=== PATIENT | male | born 1965 | race African-American/Black ===

== ENCOUNTER 2017-12-11 04:37 | Emergency (ER) | payer MEDICAID, OTHER ==
[~2017-12-11] VITALS: Ht 177.8 cm; Wt 63.0 kg
[2017-12-11] MEDS ORDERED: ONDANSETRON HCL 4MG/2ML VIAL IV STA (05:11)
[2017-12-11] MEDS ORDERED: SODIUM CHLORIDE 0.9% 1,000 ML IV ONE ×2 (05:11→05:30)
[2017-12-11 05:20] VITALS: BP 62/34
[2017-12-11] MEDS ORDERED: PANTOPRAZOLE SODIUM 40 MG/VIAL IV ONE (05:30)
[2017-12-11 05:34] LABS: BASOPHILS % 0.3 % (0.0-2.0); EOSINOPHILS % 0.2 % (0.0-5.0); HEMATOCRIT. 28.1 % (42.0-52.0); HEMOGLOBIN. 9.3 g/dL (14.0-18.0); LYMPHOCYTES % 15.2 % (20.0-50.0); MEAN CORPUSCULAR HEMOGLOBIN 33.9 pg (28.0-32.0); MEAN CORPUSCULAR VOLUME 102.1 fL (80.0-94.0); MEAN PLATELET VOLUME 6.4 fl (7.4-10.4); MONOCYTES % 6.6 % (2.0-8.0); NEUTROPHILS % 77.7 % (40.0-76.0); PLATELET 383 x1000/uL (130-400); RED BLOOD CELL COUNT 2.75 mill/uL (4.7-6.1); RED CELL DISTRIBUTION WIDTH 13.3 % (11.6-14.6)
[2017-12-11 05:36] LABS: CHLORIDE 104 mEq/L (98-107)
[2017-12-11] MEDS ORDERED: OCTREOTIDE 1,000 MCG in SODIUM CHLORIDE 0.9% 100 ML IV ONE ×2 (05:45→06:00)
[2017-12-11] MEDS ORDERED: HALOPERIDOL LACTATE 5MG/ML VIAL IM ONE (05:45)
[2017-12-11] MEDS ORDERED: AMIODARONE HCL 50MG/ML 3ML VIAL IV ONE (06:00)
[2017-12-11] MEDS ORDERED: EPINEPHRINE 0.1MG/ML (1:10,000) 10ML SYR ONE ×2 (06:00→06:31)
[2017-12-11] MEDS ORDERED: SODIUM BICARBONATE 7.5% 0.9 MEQ/ML 50ML SYR IV ONE (06:00)
== END 2017-12-11 06:32 | disposition expired ==
LOC: ER 04:37
DX: K92.2 Gastrointestinal hemorrhage, unspecified (principal); I49.01 Ventricular fibrillation; I10 Essential (primary) hypertension; F12.90 Cannabis use, unspecified, uncomplicated; F10.10 Alcohol abuse, uncomplicated; Y90.0 Blood alcohol level of less than 20 mg/100 ml; F17.210 Nicotine dependence, cigarettes, uncomplicated
CPT/HCPCS: 31500; 36415; 36430; 71045; 80053; 85025; 86850; 86900; 86901; 86920; 92950; 96361; 96372; 96374; 96375; 99291; C9113; G0482; J0171; J0282; J1630; J2354; J2405; J3490; J7030; P9016; Z7610; J7050